=== PATIENT | female | born 1965 | race Caucasian/White ===

== ENCOUNTER 2017-11-24 15:35 | Emergency (ER) | payer OTHER, SELFPAY ==
[2017-11-24] MEDS ORDERED: Ibuprofen 200 MG TAB ONE (16:09)
[2017-11-24] MEDS ORDERED: Ondansetron ODT 4 MG TAB ONE (16:09)
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
== END 2017-11-24 17:04 | disposition home or self-care (01) ==
LOC: NAV ERS 15:35
DX: S13.4XXA Sprain of ligaments of cervical spine, initial encounter (principal); S23.3XXA Sprain of ligaments of thoracic spine, initial encounter; S20.211A Contusion of right front wall of thorax, initial encounter; F17.210 Nicotine dependence, cigarettes, uncomplicated; Z71.6 Tobacco abuse counseling; Z79.899 Other long term (current) drug therapy; V49.50XA Passenger injured in collision with unspecified motor vehicles in traffic accident, initial encounter
CPT/HCPCS: 72040; 72072; Q0162